=== PATIENT | male | born 1965 | race Caucasian/White ===

== ENCOUNTER 2017-12-30 09:49 | Emergency (ER) | payer OTHER ==
--- NOTE | 2017-12-30 10:48 | ED Physician Documentation ---
History of Present Illness - Stated complaint Stated Complaint: CHEST CONGESTION - Chief complaint Chief Complaint: Heent - Additonal information Additional information: hx from pt 52 male visiting from [place] to ER with productive cough first had sinus congestion now moved to chest now moved to chest no fever chills myalgias NVD no leg edmea or pain Review of Systems Constitutional: denies: Fever, Chills Nose: reports: Congestion Respiratory: reports: Cough GI: denies: Vomiting, Diarrhea Endocrine: denies: Easy bruising / bleeding Immunocompromised: denies: Immunocompromised PD PAST MEDICAL HISTORY - Past Medical History Past Medical History: Yes Cardiovascular: Hypertension Endocrine/Autoimmune: Type 2 diabetes GI: GERD - Present Medications Home Medications: Ambulatory Orders Medication Instructions Recorded Confirmed Benzonatate [Tessalon] 100 mg PO TID PRN #20 capsule 12/30/17 Diltiazem HCl [Diltiazem 24Hr ER] 180 mg PO DAILY 12/30/17 Fluticasone [Flonase] 1 sprays ELDON BID PRN #1 bottle 12/30/17 Insulin Glargine,Hum.rec.anlog 40 units SQ DAILY 12/30/17 [Basaglar Kwikpen U-100] Lisinopril/Hydrochlorothiazide 1 tab PO DAILY 12/30/17 [Lisinopril-Hctz 20-25 mg Tab] Metformin HCl 1,000 mg PO BID 12/30/17 Omeprazole 20 mg PO DAILY 12/30/17 guaiFENesin/DEXTROMETHORPHAN 10 ml PO Q6H PRN #120 ml 12/30/17 [Robitussin Dm] - Allergies Allergies/Adverse Reactions: Allergies Allergy/AdvReac Type Severity Reaction Status Date / Time acetaminophen [From Vicodin] Allergy Rash Verified 12/30/17 10:04 hydrocodone [From Vicodin] Allergy Rash Verified 12/30/17 10:04 - Social History Does the pt smoke?: No Smoking Status: Former smoker PD ED PE NORMAL - Vitals Vital signs reviewed: Yes - General General: Alert and oriented X 3 - HEENT HEENT: Moist mucous membranes, Pharynx benign - Neck Neck: Supple, no meningeal sign - Cardiac Cardiac: RRR - Respiratory Respiratory: No respiratory distress, Clear bilaterally - Abdomen Abdomen: Soft, Non tender - Extremities Extremities: No tenderness to palpate, No edema, No calf tenderness / cord - Neuro Neuro: Alert and oriented X 3 Results - Vitals Vitals: Vital Signs - 24 hr 12/30/17 10:02 Temperature 36.1 C L Heart Rate 87 Respiratory 18 Rate Blood Pressure 134/93 H O2 Saturation 99 Oxygen O2 Source Room air - Rads (name of study) CXR Radiology: See rad report (NACPD) Departure - Departure Disposition: 01 Home, Self Care Clinical Impression: Bronchitis Condition: Good Instructions: ED URI Viral Prescriptions: Benzonatate [Tessalon] 100 mg PO TID PRN #20 capsule PRN Reason: to ease cough Fluticasone [Flonase] 1 sprays ELDON BID PRN #1 bottle PRN Reason: congestion guaiFENesin/DEXTROMETHORPHAN [Robitussin Dm] 10 ml PO Q6H PRN #120 ml PRN Reason: Cough Comments: The xray is fine - there is no pneumonia I have prescribed some medications to ease the cough and congestion
--- NOTE | 2017-12-30 11:05 | XRAY Report ---
EXAM: CHEST RADIOGRAPHY EXAM DATE: 12/30/2017 11:00 AM. CLINICAL HISTORY: Cough. COMPARISON: None. TECHNIQUE: 2 views. FINDINGS: Lungs/Pleura: No focal opacities evident. No pleural effusion. No pneumothorax. Normal volumes. Mediastinum: Heart and mediastinal contours are unremarkable. Other: Negative bony structures for age. IMPRESSION: Negative 2-view chest radiography. [facility] Referring Provider Line: [phone] SITE ID: [id number]
[2017-12-30 12:03] VITALS: BP 127/80
== END 2017-12-30 12:08 | disposition home or self-care (01) ==
LOC: ED 09:49
DX: J40 Bronchitis, not specified as acute or chronic (principal); I10 Essential (primary) hypertension; E11.9 Type 2 diabetes mellitus without complications; Z79.4 Long term (current) use of insulin; Z87.891 Personal history of nicotine dependence
CPT/HCPCS: 71046; 99283